=== PATIENT | female | born 1950 | race Caucasian/White ===

== ENCOUNTER 2018-06-05 13:30 | Outpatient (CLI) | payer OTHER, BC | END 2018-06-05 13:31 | disposition home or self-care (01) | LOC: BICMAMMO 13:30 | PROVIDERS: ATTEND Family Medicine | DX: Z12.31 Encounter for screening mammogram for malignant neoplasm of breast (principal); Z80.3 Family history of malignant neoplasm of breast | CPT/HCPCS: 77063; 77067 ==

== ENCOUNTER 2018-09-18 07:07 | Day surgery (SDC) | payer OTHER, BC ==
[2018-09-17 14:24] VITALS: BMI 26.6
--- NOTE | 2018-09-18 13:48 | OP ---
DATE OF PROCEDURE: 09/18/2018 PROCEDURE PERFORMED: Colonoscopy with snare polypectomy. PREMEDICATION: Given by Anesthesiology Department. PREPROCEDURE DIAGNOSES: 1. History of colon polyp. 2. Family history of colon cancer. POSTPROCEDURE DIAGNOSES: 1. Ascending colon polyp and sigmoid polyp. 2. Sigmoid diverticulosis. 3. Internal hemorrhoids. DESCRIPTION OF PROCEDURE: Written consents were obtained prior to procedure. After adequate sedation, the forward-viewing endoscope was advanced to rectum to the cecum with some difficulty as the sigmoid appears to be fixated. The ileocecal valve and appendiceal orifice were visualized and appeared normal. In the ascending colon, a 4-mm sessile polyp was noted and was removed with a cold snare. The hepatic flexure, transverse colon, splenic flexure, and descending colon appeared normal. A 4-mm sigmoid polyp was noted and was removed with cold snare. There was scattered diverticula noted in the sigmoid colon. Hypertrophic folds were also seen. Retroflexion showed internal hemorrhoids, grade 1. The patient tolerated the procedure well. ASSESSMENT: 1. Polyps x2, status post polypectomy. 2. Sigmoid diverticulosis coli. 3. Small internal hemorrhoids. RECOMMENDATION: Await biopsy result. Job ID: [id number]
[2018-09-18] MEDS ORDERED: PROPOFOL 200 MG/20 ML VIAL ONE (16:16)
[2018-09-18] MEDS ORDERED: Lidocaine 1% PF 5 ML VIAL ONE (16:16)
== END 2018-09-18 10:52 | disposition home or self-care (01) ==
LOC: SDC 07:07
PROVIDERS: ATTEND Internal Medicine Gastroenterology
PROC: 0DBK8ZX Excision of Ascending Colon, Via Natural or Artificial Opening Endoscopic, Diagnostic (ICD-10-PCS; principal; 2018-09-18)
PROC: 0DBN8ZX Excision of Sigmoid Colon, Via Natural or Artificial Opening Endoscopic, Diagnostic (ICD-10-PCS; principal; 2018-09-18)
DX: Z12.11 Encounter for screening for malignant neoplasm of colon (principal); D12.2 Benign neoplasm of ascending colon; D12.5 Benign neoplasm of sigmoid colon; K64.8 Other hemorrhoids; K57.30 Diverticulosis of large intestine without perforation or abscess without bleeding; F41.9 Anxiety disorder, unspecified; F32.9 Major depressive disorder, single episode, unspecified; K21.9 Gastro-esophageal reflux disease without esophagitis; E78.00 Pure hypercholesterolemia, unspecified; I10 Essential (primary) hypertension; E03.9 Hypothyroidism, unspecified; F17.210 Nicotine dependence, cigarettes, uncomplicated; Z86.010 Personal history of colon polyps; Z80.0 Family history of malignant neoplasm of digestive organs; Z79.899 Other long term (current) drug therapy
CPT/HCPCS: 88305; J2001; J2704

== ENCOUNTER 2022-06-21 08:44 | Outpatient (CLI) | payer BC, MEDICARE | END 2022-06-21 08:45 | disposition home or self-care (01) | LOC: BICULT 08:44 | PROVIDERS: ATTEND Internal Medicine Nephrology | DX: I15.9 Secondary hypertension, unspecified (principal) | CPT/HCPCS: 76770; 93975 ==

== ENCOUNTER 2022-10-15 08:09 | Inpatient (IN) | payer BC, MEDICARE ==
[2022-10-15 09:06] LABS: #Eosinphils 0.3 thou/uL (0.0-0.7); #Lymphocytes 1.8 thou/uL (1.20-3.40); #Monocytes 0.8 thou/uL (0.11-0.59); #Neutrophils 7.3 thou/uL (1.40-6.50); %Basophils 0.3 % (0.0-1.0); %Eosinophils 2.9 % (0.0-10.0); %Lymphocytes 17.9 % (21.0-51.0); %Monocytes 7.9 % (0.0-10.0); %Neutrophils 71.1 % (42.0-75.0); Hemoglobin 13.6 g/dL (12.0-16.0); Mean Corpuscular HGB CONC 35.3 g/dL (32.0-36.0); Mean Corpuscular Hemoglobin 30.2 pg (27.0-31.0); Mean Corpuscular Volume 85.8 fl (78.0-98.0); Mean Platelet Volume 7.2 fL (7.4-10.4); Platelet Count 312 10x3/uL (130-400); RBC Distribution Width 12.7 % (11.5-14.5); Red Blood Cell (RBC) Count 4.51 mill/uL (4.20-5.40); White Blood Cell (WBC) Count 10.2 10x3/uL (4.8-10.8)
[2022-10-15 09:29] LABS: ALT (SGPT) 43 U/L (8-55); AST (SGOT) 37 U/L (5-34); Albumin 4.7 g/dL (3.4-4.8); Alkaline Phosphatase 56 U/L (40-110); Anion Gap 17 mmol/L (10-20); BUN (Urea Nitrogen) 18 mg/dL (9.8-20.1); Calc. Creatinine Clearance 0 mL/min (70-130); Carbon Dioxide 18 mmol/L (23-31); Chloride 91 mmol/L (98-107); Estimated GFR 44; Globulin 3.3 g/dL (2.4-3.5); Glucose 139 mg/dL (80-115); Magnesium 2.2 mg/dL (1.6-2.6)
[2022-10-15 09:34] LABS: Potassium 7.2 mmol/L (3.5-5.1); Sodium 119 mmol/L (136-145)
[2022-10-15] MEDS ORDERED: Sodium Bicarb 50 MEQ/50 ML VIAL ONE (09:47)
[2022-10-15] MEDS ORDERED: CALCIUM GLUC 1 GM/NS 50 ML BAG ONE (09:47)
[2022-10-15] MEDS ORDERED: Dextrose 50% Abboject 50 ML SYRINGE ONE (09:47)
[2022-10-15] MEDS ORDERED: Insulin Regular 300 UNITS/3 ML VIAL ONE (09:47)
[2022-10-15 10:02] LABS: Bilirubin Negative (Negative); Blood, Urine Negative (Negative); Clarity Clear (Clear); Glucose, Urine (Dipstick) Normal (Negative); Ketone, Urine Negative (Negative); Leukocyte Negative Leu/uL (Negative); Nitrite Negative (Negative); Protein, Urine (Dipstick) Negative (Neg-Trace); Urobilinogen Normal mg/dL (Less than 2)
[2022-10-15] MEDS ORDERED: Acetaminophen 325 MG TAB PO PRN (10:38)
[2022-10-15] MEDS ORDERED: Ondansetron PF 4 MG/2 ML Vial IVP PRN (10:38)
[2022-10-15] MEDS: Sodium Chloride 0.9% 1,000 ML IV SCH (12:39)
[2022-10-15 13:37] LABS: HBCM Index 0.06 S/CO (0-0.79); HBSAg Index 0.19 S/CO (0-0.99); Hep A IgM AB Non-Reactive S/CO (NonReactive); Hep A IgM S/CO 0.42 S/CO (0-0.79); Hep B Surf Ag Non-Reactive S/CO (NonReactive); Hepatitis B Core IgM Abs Non-Reactive S/CO (NonReactive)
[2022-10-15 13:48] LABS: Hep C IgG Ab Reflex HepC Qnt S/CO (NonReactive); Hep C Index 12.89 S/CO (0-0.79)
[2022-10-15 15:07] LABS: Anion Gap 15 mmol/L (10-20); BUN (Urea Nitrogen) 17 mg/dL (9.8-20.1); Calc. Creatinine Clearance 0 mL/min (70-130); Calcium 9.6 mg/dL (7.8-10.44); Carbon Dioxide 19 mmol/L (23-31); Chloride 93 mmol/L (98-107); Estimated GFR 55; Glucose 190 mg/dL (80-115); Potassium 5.8 mmol/L (3.5-5.1); Sodium 121 mmol/L (136-145)
[2022-10-15 15:56] VITALS: BMI 26.1
[2022-10-15] MEDS ORDERED: Lidocaine 2% Viscous Solution 20 ML, Aluminum & Magnesium Hydroxide 30 ML, Donnatal Eli... SSW SCH (16:00)
[2022-10-15] MEDS ORDERED: Insulin Regular 300 UNITS/3 ML VIAL IVP SCH (18:30)
[2022-10-15] MEDS ORDERED: Dextrose 50% Abboject 50 ML SYRINGE SLOW IVP SCH (18:30)
[2022-10-15] MEDS: Famotidine 20 MG TAB PO SCH (21:30)
[2022-10-15] MEDS: ALPRAZolam 1 MG TAB PO SCH (21:31)
[2022-10-15] MEDS: hydrALAZINE 25 MG TAB PO SCH (21:31)
[2022-10-16] MEDS: Sodium Chloride 0.9% 1,000 ML IV SCH ×3 (00:04→23:45)
[2022-10-16 05:15] LABS: #Eosinphils 0.2 thou/uL (0.0-0.7); #Lymphocytes 1.7 thou/uL (1.20-3.40); #Monocytes 0.9 thou/uL (0.11-0.59); #Neutrophils 5.9 thou/uL (1.40-6.50); %Basophils 0.3 % (0.0-1.0); %Eosinophils 2.7 % (0.0-10.0); %Lymphocytes 19.8 % (21.0-51.0); %Monocytes 9.9 % (0.0-10.0); %Neutrophils 67.3 % (42.0-75.0); Hemoglobin 13.3 g/dL (12.0-16.0); Mean Corpuscular HGB CONC 37.6 g/dL (32.0-36.0); Mean Corpuscular Hemoglobin 32.2 pg (27.0-31.0); Mean Corpuscular Volume 85.7 fl (78.0-98.0); Mean Platelet Volume 7.4 fL (7.4-10.4); Platelet Count 257 10x3/uL (130-400); RBC Distribution Width 12.8 % (11.5-14.5); Red Blood Cell (RBC) Count 4.13 mill/uL (4.20-5.40); White Blood Cell (WBC) Count 8.8 10x3/uL (4.8-10.8)
[2022-10-16 05:31] LABS: Anion Gap 15 mmol/L (10-20); BUN (Urea Nitrogen) 18 mg/dL (9.8-20.1); Calc. Creatinine Clearance 62 mL/min (70-130); Calcium 9.4 mg/dL (7.8-10.44); Carbon Dioxide 18 mmol/L (23-31); Chloride 94 mmol/L (98-107); Estimated GFR 61; Glucose 109 mg/dL (80-115); Magnesium 1.9 mg/dL (1.6-2.6); Potassium 5.8 mmol/L (3.5-5.1); Sodium 121 mmol/L (136-145)
[2022-10-16] MEDS: Levothyroxine Sodium 88 MCG TAB PO SCH (06:18)
[2022-10-16] MEDS: hydrALAZINE 25 MG TAB PO SCH ×3 (08:00→20:17)
[2022-10-16] MEDS: Famotidine 20 MG TAB PO SCH ×2 (08:00→20:15)
[2022-10-16] MEDS: Estradiol 1 MG TAB PO SCH (08:00)
[2022-10-16] MEDS: Loratadine 10 MG TAB PO SCH (08:00)
[2022-10-16] MEDS: Aspirin Chewable 81 MG TAB PO SCH (08:00)
[2022-10-16] MEDS ORDERED: Amlodipine 5 MG TAB PO SCH (09:00)
[2022-10-16] MEDS: Sodium Chloride 1 GM TAB PO SCH ×3 (09:22→20:15)
[2022-10-16] MEDS: ALPRAZolam 1 MG TAB PO SCH (20:15)
[2022-10-16] MEDS: Atorvastatin Calcium 20 MG TAB PO SCH (20:15)
[2022-10-17] MEDS: Levothyroxine Sodium 88 MCG TAB PO SCH (05:30)
[2022-10-17 07:07] LABS: #Eosinphils 0.2 thou/uL (0.0-0.7); #Lymphocytes 1.6 thou/uL (1.20-3.40); #Monocytes 0.7 thou/uL (0.11-0.59); #Neutrophils 2.9 thou/uL (1.40-6.50); %Basophils 0.7 % (0.0-1.0); %Eosinophils 3.8 % (0.0-10.0); %Lymphocytes 29.8 % (21.0-51.0); %Monocytes 13.4 % (0.0-10.0); %Neutrophils 52.3 % (42.0-75.0); Hemoglobin 13.5 g/dL (12.0-16.0); Mean Corpuscular HGB CONC 34.4 g/dL (32.0-36.0); Mean Corpuscular Hemoglobin 29.7 pg (27.0-31.0); Mean Corpuscular Volume 86.5 fl (78.0-98.0); Mean Platelet Volume 7.6 fL (7.4-10.4); Platelet Count 230 10x3/uL (130-400); RBC Distribution Width 12.8 % (11.5-14.5); Red Blood Cell (RBC) Count 4.53 mill/uL (4.20-5.40); White Blood Cell (WBC) Count 5.5 10x3/uL (4.8-10.8)
[2022-10-17 07:11] LABS: Hemoglobin A1c 5.5 % (4.0-6.0)
[2022-10-17 07:26] LABS: Anion Gap 16 mmol/L (10-20); BUN (Urea Nitrogen) 14 mg/dL (9.8-20.1); Calc. Creatinine Clearance 73 mL/min (70-130); Calcium 9.9 mg/dL (7.8-10.44); Carbon Dioxide 15 mmol/L (23-31); Chloride 100 mmol/L (98-107); Estimated GFR 75; Glucose 101 mg/dL (80-115); Potassium 5.6 mmol/L (3.5-5.1); Sodium 125 mmol/L (136-145)
[2022-10-17] MEDS: Loratadine 10 MG TAB PO SCH (10:04)
[2022-10-17] MEDS: Famotidine 20 MG TAB PO SCH ×2 (10:05→20:36)
[2022-10-17] MEDS: Aspirin Chewable 81 MG TAB PO SCH (10:06)
[2022-10-17] MEDS: Sodium Chloride 1 GM TAB PO SCH ×3 (10:06→20:36)
[2022-10-17] MEDS: hydrALAZINE 25 MG TAB PO SCH ×2 (10:10→20:35)
[2022-10-17] MEDS: Estradiol 1 MG TAB PO SCH (10:37)
[2022-10-17 13:41] LABS: Campy jejuni + coli by PCR Negative (Negative); STEC Shiga Toxin 1+2 Negative (Negative); Salmonella spp. by PCR Negative (Negative); Shigella spp + EIEC by PCR Negative (Negative)
[2022-10-17 20:36] LABS: Hep C PCR-Quant HCV Not Detected IU/mL (.)
[2022-10-17] MEDS: Atorvastatin Calcium 20 MG TAB PO SCH (20:36)
[2022-10-17] MEDS: ALPRAZolam 1 MG TAB PO SCH (20:36)
[2022-10-18] MEDS: Levothyroxine Sodium 88 MCG TAB PO SCH (06:02)
[2022-10-18 07:17] LABS: Anion Gap 17 mmol/L (10-20); BUN (Urea Nitrogen) 15 mg/dL (9.8-20.1); Calc. Creatinine Clearance 69 mL/min (70-130); Calcium 9.7 mg/dL (7.8-10.44); Carbon Dioxide 17 mmol/L (23-31); Chloride 101 mmol/L (98-107); Estimated GFR 70; Glucose 107 mg/dL (80-115); Potassium 4.8 mmol/L (3.5-5.1); Sodium 130 mmol/L (136-145)
[2022-10-18] MEDS: Estradiol 1 MG TAB PO SCH (09:55)
[2022-10-18] MEDS: Aspirin Chewable 81 MG TAB PO SCH (09:55)
[2022-10-18] MEDS: Famotidine 20 MG TAB PO SCH ×2 (09:55→20:27)
[2022-10-18] MEDS: Sodium Chloride 1 GM TAB PO SCH ×3 (09:56→20:32)
[2022-10-18] MEDS: Loratadine 10 MG TAB PO SCH (09:56)
[2022-10-18] MEDS: hydrALAZINE 25 MG TAB PO SCH ×2 (09:56→20:27)
[2022-10-18] MEDS: ALPRAZolam 1 MG TAB PO SCH (20:27)
[2022-10-18] MEDS: Atorvastatin Calcium 20 MG TAB PO SCH (20:27)
[2022-10-19] MEDS: Levothyroxine Sodium 88 MCG TAB PO SCH (05:11)
[2022-10-19 07:13] LABS: Anion Gap 16 mmol/L (10-20); BUN (Urea Nitrogen) 16 mg/dL (9.8-20.1); Calc. Creatinine Clearance 71 mL/min (70-130); Calcium 9.9 mg/dL (7.8-10.44); Carbon Dioxide 19 mmol/L (23-31); Chloride 100 mmol/L (98-107); Estimated GFR 72; Glucose 120 mg/dL (80-115); Magnesium 1.7 mg/dL (1.6-2.6); Potassium 4.4 mmol/L (3.5-5.1); Sodium 131 mmol/L (136-145)
[2022-10-19] MEDS: Famotidine 20 MG TAB PO SCH ×2 (09:47→20:49)
[2022-10-19] MEDS: Aspirin Chewable 81 MG TAB PO SCH (09:47)
[2022-10-19] MEDS: Sodium Chloride 1 GM TAB PO SCH ×3 (09:47→20:50)
[2022-10-19] MEDS: hydrALAZINE 25 MG TAB PO SCH ×2 (09:47→20:49)
[2022-10-19] MEDS: Loratadine 10 MG TAB PO SCH (09:48)
[2022-10-19] MEDS: Estradiol 1 MG TAB PO SCH (09:52)
[2022-10-19] MEDS: Atorvastatin Calcium 20 MG TAB PO SCH (20:50)
[2022-10-19] MEDS: ALPRAZolam 1 MG TAB PO SCH (20:50)
[2022-10-20] MEDS: Levothyroxine Sodium 88 MCG TAB PO SCH (05:49)
[2022-10-20 06:29] LABS: Anion Gap 15 mmol/L (10-20); BUN (Urea Nitrogen) 16 mg/dL (9.8-20.1); Calc. Creatinine Clearance 73 mL/min (70-130); Calcium 10.3 mg/dL (7.8-10.44); Carbon Dioxide 19 mmol/L (23-31); Chloride 104 mmol/L (98-107); Estimated GFR 75; Glucose 119 mg/dL (80-115); Magnesium 1.8 mg/dL (1.6-2.6); Potassium 4.6 mmol/L (3.5-5.1); Sodium 133 mmol/L (136-145)
[2022-10-20] MEDS: hydrALAZINE 25 MG TAB PO SCH (08:44)
[2022-10-20] MEDS: Aspirin Chewable 81 MG TAB PO SCH (08:44)
[2022-10-20] MEDS: Loratadine 10 MG TAB PO SCH (08:44)
[2022-10-20] MEDS: Estradiol 1 MG TAB PO SCH (08:45)
[2022-10-20] MEDS: Famotidine 20 MG TAB PO SCH (08:45)
[2022-10-20] MEDS: Sodium Chloride 1 GM TAB PO SCH (08:56)
[2022-10-20] MEDS ORDERED: Magnesium Oxide 400 MG TAB PO SCH (09:00)
[2022-10-20 09:34] VITALS: BP 96/62; TEMP 98.3
== END 2022-10-20 12:49 | disposition home or self-care (01) | DRG 683 ==
LOC: ERS 08:09 → ERHOLD 10:47 → 2NO 15:24 → T4-A 10-16 14:51
PROVIDERS: ADMIT Internal Medicine; ATTEND Internal Medicine
DX: N17.9 Acute kidney failure, unspecified (principal); E87.1 Hypo-osmolality and hyponatremia; E87.20 Acidosis, unspecified; E87.5 Hyperkalemia; E83.42 Hypomagnesemia; E86.0 Dehydration; R19.7 Diarrhea, unspecified; R11.2 Nausea with vomiting, unspecified; E03.9 Hypothyroidism, unspecified; E78.5 Hyperlipidemia, unspecified; K21.9 Gastro-esophageal reflux disease without esophagitis; F41.9 Anxiety disorder, unspecified; E86.9 Volume depletion, unspecified; Z79.890 Hormone replacement therapy; Z90.49 Acquired absence of other specified parts of digestive tract; Z90.710 Acquired absence of both cervix and uterus; Z79.899 Other long term (current) drug therapy; Z79.82 Long term (current) use of aspirin; Z86.010 Personal history of colon polyps
CPT/HCPCS: 36415; 36416; 71045; 76700; 76856; 80048; 80053; 80074; 81003; 83036; 83605; 83735; 83930; 83935; 84300; 84484; 85025; 87505; 87522; 93005; 93975; 96374; 96375; J0613; J1650; J1815; J2405; J7050; J7999

== ENCOUNTER 2022-10-24 11:29 | Outpatient (CLI) | payer BC, MEDICARE | END 2022-10-24 11:30 | disposition home or self-care (01) | LOC: BICMAMMO 11:29 | PROVIDERS: ATTEND Family Medicine | DX: Z12.31 Encounter for screening mammogram for malignant neoplasm of breast (principal) | CPT/HCPCS: 77063; 77067 ==

== ENCOUNTER 2023-10-26 11:50 | Outpatient (CLI) | payer BC, MEDICARE | END 2023-10-26 11:51 | disposition home or self-care (01) | LOC: BICMAMMO 11:50 | PROVIDERS: ATTEND Family Medicine | DX: Z12.31 Encounter for screening mammogram for malignant neoplasm of breast (principal); N64.89 Other specified disorders of breast; Z80.3 Family history of malignant neoplasm of breast | CPT/HCPCS: 77063; 77067 ==

== ENCOUNTER 2023-11-25 09:22 | Inpatient (IN) | payer BC, MEDICARE ==
[~2023-11-25 09:22] MED LIST: Iopamidol-370 76% 500 ML MDV (1 ML CHARGE) ONE
[2023-11-25 10:13] LABS: Bacteria/HPF None Seen HPF (None Seen); Bilirubin Negative (Negative); Blood, Urine Negative (Negative); CAUTI Indications for Culture Acute Hematuria; Clarity Clear (Clear); Glucose, Urine (Dipstick) Normal (Negative); Ketone, Urine Negative (Negative); Leukocyte Negative Leu/uL (Negative); Nitrite Negative (Negative); Protein, Urine (Dipstick) 20 mg/dL (Neg-Trace); RBC/HPF 0-3 HPF (0-3); Specific Gravity, Urine 1.028 (1.002-1.036); Squamous Epithelial 0-3 HPF (0-3); Urobilinogen Normal mg/dL (Less than 2); WBC/HPF 0-3 HPF (0-3)
[2023-11-25 10:14] LABS: Urine Culture Reflex No No
[2023-11-25] MEDS ORDERED: Ondansetron PF 4 MG/2 ML Vial ONE (10:48)
[2023-11-25 11:02] LABS: #Basophils 0.07 10x3/uL (0.0-0.2); %Basophils 0.4 % (0.0-1.0); %Eosinophils 0.9 % (0.0-10.0); %Lymphocytes 10.7 % (21.0-51.0); %Monocytes 7.2 % (0.0-10.0); %Neutrophils 79.8 % (42.0-75.0); Hematocrit 41.6 % (36.0-47.0); Hemoglobin 14.6 g/dL (12.0-16.0); Mean Corpuscular HGB CONC 35.1 g/dL (32.0-36.0); Mean Corpuscular Volume 82.5 fL (78.0-98.0); Mean Platelet Volume 9.4 fL (7.4-10.4); Platelet Count 271 10x3/uL (130-400); RBC Distribution Width 13.2 % (11.5-14.5); Red Blood Cell (RBC) Count 5.04 mill/uL (4.20-5.40)
[2023-11-25 11:15] LABS: ALT (SGPT) 34 U/L (8-55); AST (SGOT) 30 U/L (5-34); Albumin 4.9 g/dL (3.4-4.8); Alkaline Phosphatase 56 U/L (40-110); Anion Gap 18 mmol/L (10-20); BUN (Urea Nitrogen) 21 mg/dL (9.8-20.1); Bilirubin, Total 0.6 mg/dL (0.2-1.2); Calc. Creatinine Clearance 0 mL/min (70-130); Carbon Dioxide 24 mmol/L (23-31); Chloride 96 mmol/L (98-107); Estimated GFR 70; Globulin 3.8 g/dL (2.4-3.5); Glucose 127 mg/dL (83-110); Potassium 4.8 mmol/L (3.5-5.1); Protein, Total 8.7 g/dL (5.8-8.1); Sodium 133 mmol/L (136-145)
[2023-11-25] MEDS ORDERED: Piperacillin/Tazobactam 4.5 GM VIAL ONE (12:57)
[2023-11-25] MEDS ORDERED: Sodium Chloride 0.9% 100 ML ONE (12:57)
[2023-11-25] MEDS ORDERED: Loperamide HCl 2 MG CAP PO PRN (13:04)
[2023-11-25] MEDS ORDERED: Ondansetron PF 4 MG/2 ML Vial IVP PRN (13:47)
[2023-11-25] MEDS ORDERED: hydrALAZINE 20 MG/ML VIAL SLOW IVP PRN (14:24)
[2023-11-25] MEDS ORDERED: Sodium Chloride 0.9% 1,000 ML IV SCH (14:30)
[2023-11-25 15:02] VITALS: BMI 26.6
[2023-11-25] MEDS: hydrALAZINE 25 MG TAB PO SCH (15:05)
[2023-11-25] MEDS: Sodium Chloride 0.9% 1,000 ML IV SCH (15:05)
[2023-11-25] MEDS: Acetaminophen 325 MG TAB PO PRN (15:06)
[2023-11-25] MEDS: Piperacillin/Tazobactam 3.375 GM in Sodium Chloride 0.9% 100 ML IVPB SCH (17:56)
[2023-11-25] MEDS: Ibuprofen 600 MG TAB PO PRN (17:57)
[2023-11-25] MEDS: ALPRAZolam 1 MG TAB PO SCH (20:59)
[2023-11-25] MEDS: Loratadine 10 MG TAB PO SCH (21:00)
[2023-11-25] MEDS: Saccharomyces boulardii 250 MG CAP PO SCH (21:00)
[2023-11-25] MEDS: Estradiol 1 MG TAB PO SCH (21:01)
[2023-11-25] MEDS: Aspirin Chewable 81 MG TAB PO SCH (21:01)
[2023-11-26 05:59] LABS: #Basophils 0.05 10x3/uL (0.0-0.2); %Basophils 0.9 % (0.0-1.0); %Eosinophils 4.1 % (0.0-10.0); %Lymphocytes 24.6 % (21.0-51.0); %Monocytes 9.7 % (0.0-10.0); %Neutrophils 59.3 % (42.0-75.0); Hematocrit 34.1 % (36.0-47.0); Hemoglobin 11.8 g/dL (12.0-16.0); Mean Corpuscular HGB CONC 34.6 g/dL (32.0-36.0); Mean Corpuscular Hemoglobin 29.1 pg (27.0-31.0); Mean Platelet Volume 9.9 fL (7.4-10.4); Platelet Count 204 10x3/uL (130-400); RBC Distribution Width 13.2 % (11.5-14.5); Red Blood Cell (RBC) Count 4.06 mill/uL (4.20-5.40)
[2023-11-26 06:24] LABS: Anion Gap 14 mmol/L (10-20); BUN (Urea Nitrogen) 13 mg/dL (9.8-20.1); Calc. Creatinine Clearance 75 mL/min (70-130); Calcium 9.2 mg/dL (7.8-10.44); Carbon Dioxide 23 mmol/L (23-31); Chloride 102 mmol/L (98-107); Estimated GFR 78; Glucose 119 mg/dL (83-110); Magnesium 1.9 mg/dL (1.6-2.6); Potassium 4.3 mmol/L (3.5-5.1); Sodium 135 mmol/L (136-145)
[2023-11-26] MEDS ORDERED: Bismuth SubsALICYLATE 30 ML(17.5 mg/mL) Susp PO PRN (12:47)
[2023-11-26] MEDS: Levothyroxine Sodium 88 MCG TAB PO SCH (14:12)
[2023-11-27 05:08] LABS: #Basophils 0.05 10x3/uL (0.0-0.2); %Basophils 0.9 % (0.0-1.0); %Eosinophils 4.8 % (0.0-10.0); %Lymphocytes 26.1 % (21.0-51.0); Hematocrit 37.2 % (36.0-47.0); Hemoglobin 12.5 g/dL (12.0-16.0); Mean Corpuscular HGB CONC 33.6 g/dL (32.0-36.0); Mean Corpuscular Hemoglobin 28.9 pg (27.0-31.0); Mean Corpuscular Volume 85.9 fL (78.0-98.0); Mean Platelet Volume 9.8 fL (7.4-10.4); Platelet Count 214 10x3/uL (130-400); RBC Distribution Width 13.3 % (11.5-14.5); Red Blood Cell (RBC) Count 4.33 mill/uL (4.20-5.40)
[2023-11-27 05:45] LABS: Anion Gap 16 mmol/L (10-20); BUN (Urea Nitrogen) 14 mg/dL (9.8-20.1); Calc. Creatinine Clearance 62 mL/min (70-130); Calcium 9.8 mg/dL (7.8-10.44); Carbon Dioxide 23 mmol/L (23-31); Chloride 101 mmol/L (98-107); Estimated GFR 62; Glucose 113 mg/dL (83-110); Sodium 136 mmol/L (136-145)
[2023-11-27] MEDS: Levothyroxine Sodium 88 MCG TAB PO SCH (06:06)
[2023-11-27] MEDS: Atorvastatin Calcium 20 MG TAB PO SCH (07:50)
[2023-11-27] MEDS: Pantoprazole DR 40 MG TAB PO SCH (07:51)
[2023-11-27 11:37] VITALS: BP 128/63; TEMP 97.4
== END 2023-11-27 13:44 | disposition home or self-care (01) | DRG 392 ==
LOC: ERS 09:22 → SURG A 13:04
PROVIDERS: ADMIT Internal Medicine; ATTEND Hospitalist
DX: K57.32 Diverticulitis of large intestine without perforation or abscess without bleeding (principal); E87.1 Hypo-osmolality and hyponatremia; I10 Essential (primary) hypertension; K21.9 Gastro-esophageal reflux disease without esophagitis; E03.9 Hypothyroidism, unspecified; R19.7 Diarrhea, unspecified; E78.00 Pure hypercholesterolemia, unspecified; F41.9 Anxiety disorder, unspecified; Z79.890 Hormone replacement therapy; Z79.899 Other long term (current) drug therapy; Z79.82 Long term (current) use of aspirin; Z90.49 Acquired absence of other specified parts of digestive tract; Z90.710 Acquired absence of both cervix and uterus
CPT/HCPCS: 36415; 74177; 80048; 80053; 81001; 83605; 83735; 85025; 87040; 87324; 87449; 87507; 96361; 96365; 96375; J2405; J2543; J3490; J7050; Q9967

== ENCOUNTER 2024-05-05 10:03 | Outpatient (CLI) | payer MEDICARE, BC | END 2024-05-05 10:04 | disposition home or self-care (01) | LOC: BICMAMMO 10:03 | PROVIDERS: ATTEND Family Medicine | DX: N63.20 Unspecified lump in the left breast, unspecified quadrant (principal); N64.89 Other specified disorders of breast | CPT/HCPCS: 77065; G0279 ==

== ENCOUNTER 2024-07-13 10:31 | Inpatient (IN) | payer MEDICARE, BC ==
[2024-07-13] MEDS ORDERED: Iopamidol-370 76% 500 ML MDV (1 ML CHARGE) ONE (10:55)
[2024-07-13 10:56] LABS: #Basophils 0.03 10x3/uL (0.0-0.2); %Basophils 0.4 % (0.0-1.0); %Lymphocytes 12.4 % (21.0-51.0); %Monocytes 9.4 % (0.0-10.0); %Neutrophils 75.8 % (42.0-75.0); Hematocrit 38.3 % (36.0-47.0); Hemoglobin 13.2 g/dL (12.0-16.0); Mean Corpuscular HGB CONC 34.5 g/dL (32.0-36.0); Mean Corpuscular Hemoglobin 28.3 pg (27.0-31.0); Mean Platelet Volume 8.7 fL (7.4-10.4); Platelet Count 314 10x3/uL (130-400); RBC Distribution Width 14.1 % (11.5-14.5); Red Blood Cell (RBC) Count 4.67 mill/uL (4.20-5.40)
[2024-07-13 11:13] LABS: ALT (SGPT) 37 U/L (Less than 34); AST (SGOT) 42 U/L (11-34); Albumin 4.4 g/dL (3.1-4.5); Alkaline Phosphatase 71 U/L (40-110); Anion Gap 15 mmol/L (10-20); BUN (Urea Nitrogen) 19 mg/dL (9.8-20.1); Bilirubin, Total 0.8 mg/dL (0.3-1.2); Calc. Creatinine Clearance 0 mL/min (70-130); Calcium 10.1 mg/dL (7.8-10.44); Carbon Dioxide 25 mmol/L (23-31); Chloride 94 mmol/L (98-107); Estimated GFR 73; Glucose 153 mg/dL (83-110); Lipase 70 U/L (8-78); Magnesium 2.3 mg/dL (1.6-2.6); Potassium 4.6 mmol/L (3.5-5.1); Protein, Total 8.4 g/dL (5.8-8.1); Sodium 129 mmol/L (136-145)
[2024-07-13] MEDS ORDERED: Morphine 2 MG/ML VIAL ONE (11:15)
[2024-07-13] MEDS ORDERED: Ondansetron PF 4 MG/2 ML Vial ONE (11:16)
[2024-07-13] MEDS ORDERED: Ketorolac Tromethamine 30 MG (1 mL) VIAL ONE (12:58)
[2024-07-13 13:10] LABS: Bilirubin Negative (Negative); Blood, Urine Negative (Negative); CAUTI Indications for Culture Acute Hematuria; Clarity Clear (Clear); Glucose, Urine (Dipstick) Normal (Negative); Ketone, Urine Negative (Negative); Leukocyte Negative Leu/uL (Negative); Nitrite Negative (Negative); Protein, Urine (Dipstick) Negative (Neg-Trace); RBC/HPF 0-3 HPF (0-3); Specific Gravity, Urine 1.015 (1.002-1.036); Squamous Epithelial 0-3 HPF (0-3); Urobilinogen Normal mg/dL (Less than 2); WBC/HPF 0-3 HPF (0-3)
[2024-07-13 13:11] LABS: Bacteria/HPF Rare-Few HPF (None Seen)
[2024-07-13 13:12] LABS: Urine Culture Reflex No No
[2024-07-13] MEDS ORDERED: Sodium Chloride 0.9% 100 ML ONE (13:36)
[2024-07-13] MEDS ORDERED: Piperacillin/Tazobactam 4.5 GM VIAL ONE (13:36)
[2024-07-13] MEDS ORDERED: hydrALAZINE 20 MG/ML VIAL ONE (14:16)
[2024-07-13] MEDS ORDERED: Ondansetron ODT 4 MG TAB PO PRN (14:51)
[2024-07-13] MEDS ORDERED: Ketorolac Tromethamine 30 MG (1 mL) VIAL IVP PRN (14:51)
[2024-07-13] MEDS ORDERED: Acetaminophen 650 MG Suppository PR PRN (14:51)
[2024-07-13 17:01] VITALS: BMI 25.0
[2024-07-13] MEDS: Piperacillin/Tazobactam 3.375 GM in Sodium Chloride 0.9% 100 ML IVPB SCH (17:48)
[2024-07-13] MEDS: Ondansetron PF 4 MG/2 ML Vial IVP PRN (17:48)
[2024-07-13] MEDS: Sodium Chloride 0.9% 1,000 ML IV SCH (17:50)
[2024-07-13] MEDS: Aspirin Chewable 81 MG TAB PO SCH (21:05)
[2024-07-13] MEDS: hydrALAZINE 25 MG TAB PO SCH (21:05)
[2024-07-13] MEDS: ALPRAZolam 1 MG TAB PO PRN (21:12)
[2024-07-13] MEDS ORDERED: Piperacillin/Tazobactam 4.5 GM in Sodium Chloride 0.9% 100 ML IVPB SCH (22:00)
[2024-07-14] MEDS: Levothyroxine Sodium 88 MCG TAB PO SCH (05:35)
[2024-07-14 09:45] VITALS: BMI 25.0
[2024-07-14] MEDS: Pantoprazole 40 MG DR.TAB PO SCH (10:38)
[2024-07-14] MEDS: Metoprolol Succinate XL 50 MG ER.TAB PO SCH (10:38)
[2024-07-14] MEDS: hydrALAZINE 25 MG TAB PO SCH (16:00)
[2024-07-14] MEDS: Acetaminophen 325 MG TAB PO PRN (19:59)
[2024-07-15 05:21] LABS: Hematocrit 33.2 % (36.0-47.0); Hemoglobin 11.4 g/dL (12.0-16.0); Mean Corpuscular HGB CONC 34.3 g/dL (32.0-36.0); Mean Corpuscular Hemoglobin 28.8 pg (27.0-31.0); Mean Corpuscular Volume 83.8 fL (78.0-98.0); Mean Platelet Volume 8.8 fL (7.4-10.4); Platelet Count 235 10x3/uL (130-400); Red Blood Cell (RBC) Count 3.96 mill/uL (4.20-5.40)
[2024-07-15 05:57] LABS: Anion Gap 12 mmol/L (10-20); BUN (Urea Nitrogen) 13 mg/dL (9.8-20.1); Calc. Creatinine Clearance 64 mL/min (70-130); Calcium 8.9 mg/dL (7.8-10.44); Carbon Dioxide 23 mmol/L (23-31); Chloride 105 mmol/L (98-107); Estimated GFR 68; Glucose 127 mg/dL (83-110); Sodium 136 mmol/L (136-145)
[2024-07-15 07:42] VITALS: BP 146/66; TEMP 97.6
[2024-07-15] MEDS: hydrALAZINE 25 MG TAB PO SCH (10:11)
== END 2024-07-15 11:11 | disposition home or self-care (01) | DRG 392 ==
LOC: ERS 10:31 → INTOOBSV 15:05 → MSONC 15:05 → OBSVTOIN 07-14 11:50
PROVIDERS: ADMIT Internal Medicine; ATTEND Internal Medicine
DX: K57.32 Diverticulitis of large intestine without perforation or abscess without bleeding (principal); I10 Essential (primary) hypertension; E78.5 Hyperlipidemia, unspecified; E83.42 Hypomagnesemia; E03.9 Hypothyroidism, unspecified; F41.9 Anxiety disorder, unspecified; K21.9 Gastro-esophageal reflux disease without esophagitis; F32.A Depression, unspecified; N28.1 Cyst of kidney, acquired; Z90.710 Acquired absence of both cervix and uterus; Z90.49 Acquired absence of other specified parts of digestive tract; Z87.891 Personal history of nicotine dependence
CPT/HCPCS: 36415; 74177; 80048; 80053; 81001; 83690; 83735; 85025; 85027; 87040; 87086; 93005; 96376; G0378; J0360; J1885; J2272; J2405; J2543; J7030; Q9967

== ENCOUNTER 2025-02-28 08:42 | Observation (INO) | payer MEDICARE, BC ==
[2025-02-28] MEDS ORDERED: Ondansetron PF 4 MG/2 ML Vial ONE ×2 (09:07→14:21)
[2025-02-28 09:52] LABS: #Basophils 0.03 10x3/uL (0.0-0.2); #Eosinophils 0.12 10x3/uL (0.0-0.7); #Monocytes 0.30 10x3/uL (0.11-0.59); #Neutrophils 2.78 10x3/uL (1.40-6.50); %Basophils 0.8 % (0.0-1.0); %Eosinophils 3.1 % (0.0-10.0); %Lymphocytes 14.3 % (21.0-51.0); %Monocytes 7.8 % (0.0-10.0); %Neutrophils 72.4 % (42.0-75.0); Hematocrit 32.0 % (36.0-47.0); Hemoglobin 10.6 g/dL (12.0-16.0); Mean Corpuscular Hemoglobin 26.9 pg (27.0-31.0); Mean Corpuscular Volume 81.2 fL (78.0-98.0); Platelet Count 233 10x3/uL (130-400); Red Blood Cell (RBC) Count 3.94 mill/uL (4.20-5.40); White Blood Cell (WBC) Count 3.84 10x3/uL (4.8-10.8)
[2025-02-28 10:06] LABS: ALT (SGPT) 15 U/L (Less than 34); AST (SGOT) 23 U/L (11-34); Albumin 3.8 g/dL (3.1-4.5); Alkaline Phosphatase 58 U/L (40-110); Anion Gap 13 mmol/L (10-20); BUN (Urea Nitrogen) 9 mg/dL (9.8-20.1); Bilirubin, Total 0.4 mg/dL (0.3-1.2); Calc. Creatinine Clearance 0 mL/min (70-130); Calcium 9.4 mg/dL (7.8-10.44); Carbon Dioxide 26 mmol/L (23-31); Chloride 102 mmol/L (98-107); Globulin 3.6 g/dL (2.4-3.5); Glucose 131 mg/dL (83-110); Lipase 54 U/L (8-78); Potassium 3.7 mmol/L (3.5-5.1); Sodium 137 mmol/L (136-145)
[2025-02-28] MEDS ORDERED: Ketorolac Tromethamine 30 MG (1 mL) VIAL ONE ×2 (10:48→19:02)
[2025-02-28 11:40] LABS: Bacteria/HPF None Seen HPF (None Seen); CAUTI Indications for Culture Pelvic or flank pain; Glucose, Urine (Dipstick) Normal (Negative); Leukocyte Negative Leu/uL (Negative); Protein, Urine (Dipstick) Negative (Neg-Trace); RBC/HPF 0-3 HPF (0-3); Specific Gravity, Urine 1.006 (1.002-1.036); WBC/HPF 0-3 HPF (0-3)
[2025-02-28 11:44] LABS: Urine Culture Reflex No No
[2025-02-28] MEDS ORDERED: Dextrose 50% Abboject 50 ML SYRINGE SLOW IVP PRN (12:17)
[2025-02-28] MEDS ORDERED: Glucagon 1 MG/ML KIT IM PRN (12:17)
[2025-02-28 13:35] VITALS: BMI 23.7
[2025-02-28] MEDS ORDERED: Rocuronium Bromide 10 MG/ML (10ML VIAL) ONE (14:21)
[2025-02-28] MEDS ORDERED: SUGAMMADEX SODIUM 200 MG/2 ML VIAL ONE (14:21)
[2025-02-28] MEDS ORDERED: PROPOFOL 20 ML ONE (14:21)
[2025-02-28] MEDS ORDERED: fentaNYL PF 100 MCG/2 ML SYRINGE ONE ×2 (14:21→16:56)
[2025-02-28] MEDS ORDERED: Lidocaine 1% PF 5 ML VIAL ONE (14:21)
[2025-02-28] MEDS ORDERED: Famotidine/PF 20 mg/2ml Vial ONE (15:22)
[2025-02-28] MEDS ORDERED: HYDROmorphone 0.5 MG/0.5 ML SYR SLOW IVP PRN (18:50)
[2025-02-28] MEDS: Ondansetron PF 4 MG/2 ML Vial IVP PRN (19:55)
[2025-02-28] MEDS: cefTRIAXone\\ROCEPHIN 1 GM in Sodium Chloride 0.9% 100 ML IVPB SCH (21:00)
[2025-03-01] MEDS: cloNIDine 0.1 MG TAB PO PRN (00:13)
[2025-03-01 04:07] LABS: #Basophils Less than 0.03 10x3/uL (0.0-0.2); #Eosinophils 0.03 10x3/uL (0.0-0.7); #Monocytes 0.43 10x3/uL (0.11-0.59); #Neutrophils 4.50 10x3/uL (1.40-6.50); %Basophils 0.2 % (0.0-1.0); %Eosinophils 0.5 % (0.0-10.0); %Lymphocytes 9.7 % (21.0-51.0); %Monocytes 7.7 % (0.0-10.0); %Neutrophils 81.0 % (42.0-75.0); Hematocrit 29.0 % (36.0-47.0); Hemoglobin 9.5 g/dL (12.0-16.0); Mean Corpuscular Hemoglobin 27.1 pg (27.0-31.0); Mean Corpuscular Volume 82.6 fL (78.0-98.0); Platelet Count 209 10x3/uL (130-400); Red Blood Cell (RBC) Count 3.51 mill/uL (4.20-5.40); White Blood Cell (WBC) Count 5.56 10x3/uL (4.8-10.8)
[2025-03-01 04:27] LABS: Anion Gap 14 mmol/L (10-20); BUN (Urea Nitrogen) 8 mg/dL (9.8-20.1); Calc. Creatinine Clearance 87 mL/min (70-130); Calcium 8.8 mg/dL (7.8-10.44); Carbon Dioxide 23 mmol/L (23-31); Chloride 101 mmol/L (98-107); Glucose 130 mg/dL (83-110); Potassium 3.4 mmol/L (3.5-5.1); Sodium 135 mmol/L (136-145)
[2025-03-01] MEDS: Acetaminophen 325 MG TAB PO PRN (05:38)
[2025-03-01] MEDS: Pantoprazole 40 MG DR.TAB PO SCH (08:29)
[2025-03-01] MEDS: Sertraline 25 MG TAB PO SCH (08:29)
[2025-03-01] MEDS: Metoprolol Succinate XL 100 MG ER.TAB PO SCH (08:29)
[2025-03-01] MEDS ORDERED: Non-Formulary Item 1 EACH (Hydralazine Hcl [Hydralazine Hcl] 50 MG Tablet) PO SCH (09:00)
[2025-03-01] MEDS ORDERED: Non-Formulary Item 1 EACH (Sertraline Hcl [Zoloft] 50 MG Tablet) PO SCH (09:00)
[2025-03-01] MEDS ORDERED: Iopamidol-370 76% 500 ML MDV (1 ML CHARGE) ONE (10:46)
[2025-03-01 16:22] VITALS: BP 144/60; TEMP 98.6
== END 2025-03-01 16:40 | disposition home or self-care (01) ==
LOC: ERS 08:42 → T4-B 12:21
PROVIDERS: ADMIT Surgery; ATTEND Surgery
PROC: 0FT44ZZ Resection of Gallbladder, Percutaneous Endoscopic Approach (ICD-10-PCS; principal; 2025-02-28)
DX: K80.12 Calculus of gallbladder with acute and chronic cholecystitis without obstruction (principal); K65.9 Peritonitis, unspecified; K75.9 Inflammatory liver disease, unspecified; R59.0 Localized enlarged lymph nodes; I10 Essential (primary) hypertension; E78.5 Hyperlipidemia, unspecified; E03.9 Hypothyroidism, unspecified; Z90.49 Acquired absence of other specified parts of digestive tract; Z90.710 Acquired absence of both cervix and uterus; Z79.890 Hormone replacement therapy; Z79.82 Long term (current) use of aspirin; Z79.899 Other long term (current) drug therapy
CPT/HCPCS: 47562; 74177; 76705; 80048; 80053; 81001; 83690; 84484; 85025 ×2; 93005; 96361; 96365; 96375 ×2; 96376 ×3; 99285; C1713; G0378 ×3; J0694; J0696; J1308; J1885; J2270; J2405; J2543; J2704; J3010; J7030 ×2; Q0162; S2900; 88304; Q9967

== ENCOUNTER 2025-03-16 20:05 | Emergency (ER) | payer MEDICARE, BC | END 2025-03-16 20:37 | disposition left against medical advice (07) | LOC: ERS 20:05 | DX: Z53.21 Procedure and treatment not carried out due to patient leaving prior to being seen by health care provider (principal) ==

== ENCOUNTER 2025-03-22 17:54 | Inpatient (IN) | payer MEDICARE, BC ==
[~2025-03-22 17:54] MED LIST changes: +Iopamidol 370 76% 100 ML VIAL ONE; -Iopamidol-370 76% 500 ML MDV (1 ML CHARGE) ONE
[2025-03-22] MEDS ORDERED: niCARdipine 25 MG/10 ML SDV ONE (18:13)
[2025-03-22] MEDS ORDERED: levETIRAcetam 500 MG (5 mL) VIAL ONE (18:27)
[2025-03-22 18:30] LABS: #Basophils Less than 0.03 10x3/uL (0.0-0.2); #Eosinophils Less than 0.03 10x3/uL (0.0-0.7); #Monocytes 0.33 10x3/uL (0.11-0.59); #Neutrophils 5.51 10x3/uL (1.40-6.50); %Basophils 0.3 % (0.0-1.0); %Eosinophils 0.2 % (0.0-10.0); %Lymphocytes 4.8 % (21.0-51.0); %Monocytes 5.2 % (0.0-10.0); %Neutrophils 87.6 % (42.0-75.0); Hematocrit 31.8 % (36.0-47.0); Hemoglobin 10.7 g/dL (12.0-16.0); Mean Corpuscular Hemoglobin 26.3 pg (27.0-31.0); Mean Corpuscular Volume 78.1 fL (78.0-98.0); Platelet Count 256 10x3/uL (130-400); Red Blood Cell (RBC) Count 4.07 mill/uL (4.20-5.40); White Blood Cell (WBC) Count 6.29 10x3/uL (4.8-10.8)
[2025-03-22 18:44] LABS: INR-International Normal Ratio 1.2; Prothrombin Time 15.0 sec (12.0-14.7)
[2025-03-22 18:45] LABS: PTT 36.3 sec (22.9-36.1)
[2025-03-22 19:00] LABS: ALT (SGPT) 38 U/L (Less than 34); AST (SGOT) 52 U/L (11-34); Albumin 3.6 g/dL (3.1-4.5); Anion Gap 19 mmol/L (10-20); BUN (Urea Nitrogen) 10 mg/dL (9.8-20.1); Bilirubin, Total 0.5 mg/dL (0.3-1.2); Calc. Creatinine Clearance 0 mL/min (70-130); Calcium 8.3 mg/dL (7.8-10.44); Carbon Dioxide 23 mmol/L (23-31); Chloride 97 mmol/L (98-107); Globulin 3.9 g/dL (2.4-3.5); Glucose 173 mg/dL (83-110); Potassium 2.6 mmol/L (3.5-5.1); Sodium 136 mmol/L (136-145)
[2025-03-22 19:06] LABS: Alkaline Phosphatase 73 U/L (40-110)
[2025-03-22] MEDS ORDERED: Electrolyte Replacement Protocol 1 EACH IVPB PRN (19:46)
[2025-03-22] MEDS ORDERED: Acetaminophen 325 MG TAB PO PRN (19:53)
[2025-03-22] MEDS ORDERED: Calcium Carbonate 500 MG ChewTAB PO PRN (19:53)
[2025-03-22] MEDS ORDERED: Ondansetron PF 4 MG/2 ML Vial ONE (20:23)
[2025-03-22] MEDS: niCARdipine 25 MG in Sodium Chloride 0.9% 250 ML 250 ML IVPB PRN (21:30)
[2025-03-22 22:52] VITALS: BMI 21.9
[2025-03-23] MEDS: Ondansetron PF 4 MG/2 ML Vial IVP PRN (01:49)
[2025-03-23 03:07] LABS: #Basophils Less than 0.03 10x3/uL (0.0-0.2); #Eosinophils 0.04 10x3/uL (0.0-0.7); #Monocytes 0.50 10x3/uL (0.11-0.59); #Neutrophils 3.81 10x3/uL (1.40-6.50); %Basophils 0.4 % (0.0-1.0); %Eosinophils 0.8 % (0.0-10.0); %Lymphocytes 9.7 % (21.0-51.0); %Monocytes 10.1 % (0.0-10.0); %Neutrophils 77.2 % (42.0-75.0); Hematocrit 29.2 % (36.0-47.0); Hemoglobin 9.8 g/dL (12.0-16.0); Mean Corpuscular Hemoglobin 26.4 pg (27.0-31.0); Mean Corpuscular Volume 78.7 fL (78.0-98.0); Platelet Count 263 10x3/uL (130-400); Red Blood Cell (RBC) Count 3.71 mill/uL (4.20-5.40); White Blood Cell (WBC) Count 4.94 10x3/uL (4.8-10.8)
[2025-03-23] MEDS: Fioricet 325/50/40 mg Tablet PO PRN (03:47)
[2025-03-23 04:34] LABS: ALT (SGPT) 33 U/L (Less than 34); AST (SGOT) 38 U/L (11-34); Albumin 3.3 g/dL (3.1-4.5); Alkaline Phosphatase 66 U/L (40-110); Anion Gap 19 mmol/L (10-20); BUN (Urea Nitrogen) 8 mg/dL (9.8-20.1); Bilirubin, Total 0.5 mg/dL (0.3-1.2); Calc. Creatinine Clearance 87 mL/min (70-130); Calcium 7.9 mg/dL (7.8-10.44); Carbon Dioxide 24 mmol/L (23-31); Cardiac Risk 4.3 (Less than 4.5); Chloride 99 mmol/L (98-107); Cholesterol 94 mg/dl (< 200 Desired); Globulin 3.5 g/dL (2.4-3.5); Glucose 121 mg/dL (83-110); HDL Cholesterol 22 mg/dL (>60 Neg Risk); LDL Cholesterol, Calculated 53 mg/dL; Potassium 2.6 mmol/L (3.5-5.1); Sodium 139 mmol/L (136-145); Triglycerides 97 mg/dL (Less than 150)
[2025-03-23] MEDS: Potassium Chloride 20 MEQ in Premix 1 BAG IVPB SCH (05:24)
[2025-03-23] MEDS: levETIRAcetam 500 MG TAB PO SCH (08:03)
[2025-03-23 16:16] LABS: Potassium 3.4 mmol/L (3.5-5.1)
[2025-03-23] MEDS: cloNIDine 0.1 MG TAB PO PRN (16:34)
[2025-03-23 21:32] LABS: Potassium 3.5 mmol/L (3.5-5.1)
[2025-03-23] MEDS: hydrALAZINE 20 MG/ML VIAL SLOW IVP PRN (22:40)
[2025-03-24 03:26] LABS: #Basophils Less than 0.03 10x3/uL (0.0-0.2); #Eosinophils 0.12 10x3/uL (0.0-0.7); #Monocytes 0.46 10x3/uL (0.11-0.59); #Neutrophils 3.10 10x3/uL (1.40-6.50); %Basophils 0.5 % (0.0-1.0); %Eosinophils 2.7 % (0.0-10.0); %Lymphocytes 15.1 % (21.0-51.0); %Monocytes 10.4 % (0.0-10.0); %Neutrophils 69.7 % (42.0-75.0); Hematocrit 26.9 % (36.0-47.0); Hemoglobin 9.0 g/dL (12.0-16.0); Mean Corpuscular Hemoglobin 26.5 pg (27.0-31.0); Mean Corpuscular Volume 79.4 fL (78.0-98.0); Platelet Count 247 10x3/uL (130-400); Red Blood Cell (RBC) Count 3.39 mill/uL (4.20-5.40); White Blood Cell (WBC) Count 4.44 10x3/uL (4.8-10.8)
[2025-03-24 04:01] LABS: Anion Gap 12 mmol/L (10-20); BUN (Urea Nitrogen) 7 mg/dL (9.8-20.1); Calc. Creatinine Clearance 90 mL/min (70-130); Calcium 7.0 mg/dL (7.8-10.44); Carbon Dioxide 23 mmol/L (23-31); Chloride 103 mmol/L (98-107); Glucose 117 mg/dL (83-110); Magnesium 0.7 mg/dL (1.6-2.6); Potassium 3.3 mmol/L (3.5-5.1); Sodium 135 mmol/L (136-145)
[2025-03-24] MEDS: Magnesium Sulfate In Water 4 GM in Premix 1 BAG IVPB SCH (04:15)
[2025-03-24] MEDS ORDERED: Sertraline 100 MG TAB PO SCH (09:00)
[2025-03-24] MEDS: Pantoprazole 40 MG DR.TAB PO SCH (09:13)
[2025-03-24] MEDS: FLU (Fluad Triv) 25-26 (65UP)PF 45 MCG/0.5 ML Syringe IM ONE (11:37)
[2025-03-25 04:04] LABS: #Basophils 0.03 10x3/uL (0.0-0.2); #Eosinophils 0.13 10x3/uL (0.0-0.7); #Monocytes 0.40 10x3/uL (0.11-0.59); #Neutrophils 3.67 10x3/uL (1.40-6.50); %Basophils 0.6 % (0.0-1.0); %Eosinophils 2.7 % (0.0-10.0); %Lymphocytes 11.3 % (21.0-51.0); %Monocytes 8.2 % (0.0-10.0); %Neutrophils 75.4 % (42.0-75.0); Hematocrit 29.7 % (36.0-47.0); Hemoglobin 9.5 g/dL (12.0-16.0); Mean Corpuscular Hemoglobin 26.1 pg (27.0-31.0); Mean Corpuscular Volume 81.6 fL (78.0-98.0); Platelet Count 268 10x3/uL (130-400); Red Blood Cell (RBC) Count 3.64 mill/uL (4.20-5.40); White Blood Cell (WBC) Count 4.87 10x3/uL (4.8-10.8)
[2025-03-25 04:47] LABS: Anion Gap 10 mmol/L (10-20); BUN (Urea Nitrogen) 5 mg/dL (9.8-20.1); Calc. Creatinine Clearance 81 mL/min (70-130); Calcium 8.6 mg/dL (7.8-10.44); Carbon Dioxide 23 mmol/L (23-31); Chloride 106 mmol/L (98-107); Glucose 98 mg/dL (83-110); Magnesium 1.9 mg/dL (1.6-2.6); Potassium 3.7 mmol/L (3.5-5.1); Sodium 135 mmol/L (136-145)
[2025-03-25] MEDS: Magnesium 2 GM/50 ML(in water) 2 GM in Premix 1 BAG IVPB SCH (10:37)
[2025-03-26 04:43] LABS: #Basophils 0.05 10x3/uL (0.0-0.2); #Eosinophils 0.21 10x3/uL (0.0-0.7); #Monocytes 0.43 10x3/uL (0.11-0.59); #Neutrophils 4.10 10x3/uL (1.40-6.50); %Basophils 0.9 % (0.0-1.0); %Eosinophils 3.8 % (0.0-10.0); %Lymphocytes 12.0 % (21.0-51.0); %Monocytes 7.7 % (0.0-10.0); %Neutrophils 73.3 % (42.0-75.0); Hematocrit 36.4 % (36.0-47.0); Hemoglobin 11.4 g/dL (12.0-16.0); Mean Corpuscular Hemoglobin 26.3 pg (27.0-31.0); Mean Corpuscular Volume 83.9 fL (78.0-98.0); Platelet Count 194 10x3/uL (130-400); Red Blood Cell (RBC) Count 4.34 mill/uL (4.20-5.40); White Blood Cell (WBC) Count 5.59 10x3/uL (4.8-10.8)
[2025-03-26 04:58] LABS: Anion Gap 14 mmol/L (10-20); BUN (Urea Nitrogen) 6 mg/dL (9.8-20.1); Calc. Creatinine Clearance 87 mL/min (70-130); Calcium 9.1 mg/dL (7.8-10.44); Carbon Dioxide 22 mmol/L (23-31); Chloride 104 mmol/L (98-107); Glucose 104 mg/dL (83-110); Potassium 3.8 mmol/L (3.5-5.1); Sodium 136 mmol/L (136-145)
[2025-03-26] MEDS ORDERED: cloNIDine 0.1 MG TAB PO PRN (10:06)
[2025-03-26] MEDS: Carvedilol 6.25 MG TAB PO SCH (17:33)
[2025-03-26] MEDS: cloNIDine 0.1 MG TAB PO PRN (19:28)
[2025-03-26] MEDS: Aspirin Chewable 81 MG TAB PO SCH (22:30)
[2025-03-26] MEDS: Estradiol 1 MG TAB PO SCH (22:31)
[2025-03-27] MEDS: Spironolactone 25 MG TAB PO SCH (09:46)
[2025-03-27 11:15] VITALS: BMI 21.8
[2025-03-27] MEDS: Acetaminophen 325 MG TAB PO PRN (11:18)
[2025-03-27] MEDS: Acetaminophen 325 MG TAB PO SCH (18:56)
[2025-03-28] MEDS: Carvedilol 25 MG TAB PO SCH ×2 (10:10→17:15)
[2025-03-28] MEDS: oxyCODONE 5 MG TAB PO PRN (17:50)
[2025-03-29] MEDS: Spironolactone 25 MG TAB PO SCH (10:44)
[2025-03-29] MEDS: cloNIDine 0.1 MG TAB PO SCH ×2 (10:46→22:10)
[2025-03-29 12:16] LABS: Anion Gap 14 mmol/L (10-20); BUN (Urea Nitrogen) 7 mg/dL (9.8-20.1); Calc. Creatinine Clearance 72 mL/min (70-130); Calcium 10.1 mg/dL (7.8-10.44); Carbon Dioxide 25 mmol/L (23-31); Chloride 95 mmol/L (98-107); Glucose 137 mg/dL (83-110); Magnesium 1.5 mg/dL (1.6-2.6); Potassium 3.9 mmol/L (3.5-5.1); Sodium 130 mmol/L (136-145)
[2025-03-29] MEDS: Magnesium 2 GM/50 ML(in water) 2 GM in Premix 1 BAG IVPB SCH (13:58)
[2025-03-30 04:50] LABS: Magnesium 1.5 mg/dL (1.6-2.6)
[2025-03-30 08:16] VITALS: TEMP 97.9
[2025-03-30] MEDS: Spironolactone 25 MG TAB PO SCH (08:30)
[2025-03-30] MEDS: Magnesium 2 GM/50 ML(in water) 2 GM in Premix 1 BAG IVPB SCH (08:30)
[2025-03-30 12:39] VITALS: BP 125/68
[2025-03-30] MEDS ORDERED: levETIRAcetam 500 MG TAB PO SCH (21:00)
== END 2025-03-30 12:21 | DRG 64 ==
LOC: ERS 17:54 → CCU 20:11 → 2SE 03-23 21:35
PROVIDERS: ADMIT Student in an Organized Health Care Education/Training Program; ATTEND Hospitalist
DX: I61.9 Nontraumatic intracerebral hemorrhage, unspecified (principal); G93.6 Cerebral edema; E87.1 Hypo-osmolality and hyponatremia; R47.01 Aphasia; I16.1 Hypertensive emergency; E03.9 Hypothyroidism, unspecified; K21.9 Gastro-esophageal reflux disease without esophagitis; E78.5 Hyperlipidemia, unspecified; Z98.890 Other specified postprocedural states; E87.6 Hypokalemia; F41.9 Anxiety disorder, unspecified; F32.A Depression, unspecified; R51.9 Headache, unspecified; Z79.899 Other long term (current) drug therapy
CPT/HCPCS: 36415; 36416; 70450; 70496; 70498; 70551; 80048; 80053; 80061; 82088; 83735; 84244; 85025; 85610; 85730; 86850; 86900; 86901; 93005; 95700; 95711; 95957; 96365; 96374; 96375; J0360; J1953; J2270; J2550; J3475; J3480; J7030; J7050; Q0162; Q9967

== ENCOUNTER 2025-04-24 11:21 | Outpatient (CLI) | payer MEDICARE, BC | END 2025-04-24 11:22 | disposition home or self-care (01) | LOC: BICCT 11:21 | PROVIDERS: ATTEND Surgery | DX: I61.9 Nontraumatic intracerebral hemorrhage, unspecified (principal) | CPT/HCPCS: 70450 ==